=== PATIENT | male | born 1975 | race Two or more races ===

== ENCOUNTER 2024-10-26 23:40 | Emergency (ER) | payer OTHER ==
[~2024-10-26] VITALS: Ht 170.2 cm; Wt 125.6 kg
[2024-10-27 01:14] VITALS: BP 134/82; TEMP 98.1; O2SAT 96
== END 2024-10-27 01:14 | disposition home or self-care (01) ==
LOC: ER 23:45
DX: S43.491A Other sprain of right shoulder joint, initial encounter (principal); S63.695A Other sprain of left ring finger, initial encounter; S39.82XA Other specified injuries of lower back, initial encounter; I10 Essential (primary) hypertension; Z60.2 Problems related to living alone; V49.49XA Driver injured in collision with other motor vehicles in traffic accident, initial encounter; Y93.89 Activity, other specified; Y92.415 Exit ramp or entrance ramp of street or highway as the place of occurrence of the external cause; Y99.8 Other external cause status
CPT/HCPCS: 72131-TC; 73030-TC; 73140-TC